=== PATIENT | female | born 1975 | race Caucasian/White ===

== ENCOUNTER 2021-03-25 11:42 | Outpatient (CLI) | payer OTHER, SELFPAY ==
[2021-03-25 11:40] VITALS: BP 120/84; PULSE 74; RESP 16; TEMP 36.6; O2SAT 97
[2021-03-25 13:13] VITALS: BP 117/80; PULSE 60; RESP 14; TEMP 36.2; O2SAT 96
== END 2021-03-25 11:43 | disposition home or self-care (01) ==
PROVIDERS: Visit Provider Family Medicine
DX: U07.1 COVID-19 (principal)
CPT/HCPCS: 96365; Q0047